=== PATIENT | female | born 1940 | race Caucasian/White ===

== ENCOUNTER 2017-05-24 18:28 | Emergency (ER) | payer MEDICARE ==
[~2017-05-24] VITALS: Ht 165.1 cm; Wt 76.7 kg
[~2017-05-24 18:28] MED LIST: ACETAMINOPHEN-1 EAC1 PO; AMBIEN 10 MG TA10 MG; ANASTROZOLE1 MG PO; ASPIR 8181 MG PO; BENADRYL25 MG PO; BENTYL 10 MG CA10 M1 PO; BENTYL 10 MG CA10 MG PO; CARISOPRODOL 3350 MG PO; CELEXA; CHLORDIAZEPOXI1 EAC1 PO; COQ-10100 MG PO; CRESTOR5 MG; CYTOMEL 5MCG TA5 MC1 PO; ESTRACE0.5 MG; K-DUR10 ME1; MALTREXONE PO; MEDROLDOSEPACK PO; PREDNISONE 20 M20 MG PO; PREVACID; TESSALON PERLE100 MG PO; VERAPAMIL ER180 MG PO; ZOCOR 20 MG TAB20 M1
[2017-05-24] MEDS ORDERED: VALIUM2 MG PO (19:23)
[2017-05-24 19:40] VITALS: BP 158/78
[2017-06-13] MEDS ORDERED: LIOTHYRONINE PO (14:41)
== END 2017-05-24 19:46 | disposition home or self-care (01) ==
LOC: M.ERS 18:28
DX: R42 Dizziness and giddiness (principal); I10 Essential (primary) hypertension; E78.5 Hyperlipidemia, unspecified; Z98.890 Other specified postprocedural states; Z85.3 Personal history of malignant neoplasm of breast; Z88.2 Allergy status to sulfonamides; Z88.1 Allergy status to other antibiotic agents; Z88.5 Allergy status to narcotic agent; Z88.8 Allergy status to other drugs, medicaments and biological substances

== ENCOUNTER 2017-06-21 06:20 | Inpatient (IN) | payer MEDICARE ==
[~2017-06-21] VITALS: Ht 165.1 cm; Wt 76.7 kg
[~2017-06-21 06:20] MED LIST changes: +LIOTHYRONINE PO; +VALIUM2 MG PO
[2017-06-21 06:40] LABS: HEMATOCRIT 43.5 % (37.0-47.0); HEMOGLOBIN 14.8 gm/dL (12.0-15.0); MCH 30.2 pg (26.0-34.0); MCHC 34.2 g/dL (28.0-37.0); MCV 88.4 fL (80.0-100.0); MPV 6.6 fl. (7.2-11.1); RBC 4.92 mil/uL (4.20-5.00); RDW-CV 14.2 % (10.5-14.5); WBC 4.7 thou/uL (4.0-11.0)
[2017-06-21 06:48] LABS: CALCIUM 9.3 mg/dL (8.5-10.1); POTASSIUM 3.7 mmol/L (3.5-5.1)
[2017-06-21 06:56] VITALS: BP 113/76
[2017-06-21 07:01] LABS: ALBUMIN 3.7 g/dL (3.4-5.0); TOTAL BILIRUBIN 0.8 mg/dL (<0.1-1.0); TOTAL PROTEIN 7.5 g/dL (6.4-8.2)
[2017-06-21 13:07] VITALS: BP 140/46
--- NOTE | 2017-06-21 15:59 | EKG ---
[place] [address] ELECTROCARDIOGRAM REPORT Name: CARLGALILEO Room: [address] ADM IN M.R.#: [id number] Admission: 06/21/17 Attend Phys: Chas Miller Discharge: Date of : 36 Report #: [id number] THIS REPORT FOR: //name// [facility] Test Date: 2017-06-21 Test Time: 07:29:38 Pat Name: GALILEO HENRY Department: Room: 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: : 1940 Requested By: Chas Miller Order Number: [id number] Susie FELICIANO: Scottie Murray Measurements Intervals [place] Rate: 69 P: 97 CT: 210 QRS: 41 QRSD: 86 T: 12 QT: 402 QTc: 431 Interpretive Statements Sinus rhythm Compared to ECG 04/23/2013 12:14:30 ST (T wave) deviation no longer present Prolonged QT interval no longer present Electronically Signed On 06-21-2017 15:59:18 CDT by Scottie Murray [email or web address] <ELECTRONICALLY SIGNED> By: Scottie Murray MD, [facility] 06/21/17 1559 0729 0729 Scottie Murray MD, [facility] /EPI
[2017-06-21 16:03] VITALS: BP 152/69
--- NOTE | 2017-06-21 19:52 | NUR ---
PATIENT REMAINED ALERT AND ORIENTED X'S 4. VITAL SIGNS AND SPO2 STABLE. IV CLEAN, FLUIDS INFUSING. PAIN WELL CONTROLLED WITH PAIN MEDS. TOLERATED DIET, DID HAVE SOME BOUTS OF NAUSEA, GAVE, ZOFRAN, NAUSEA SUBSIDED. LAP SITES ON ABDOMEN CLEAN, INTACT, SLIGHT DRAINAGE. PROCTOR IN PLACE. SCD'S, YELLOW SOCKS, ICE PACK IN PLACE. COMPLETED HOURLY ROUNDING. CALL LIGHT WITHIN REACH. WILL CONTINUE TO MONITOR.
[2017-06-21 20:00] VITALS: BP 141/67
[2017-06-22 00:25] VITALS: BP 140/65
[2017-06-22 03:39] VITALS: BP 131/59
[2017-06-22 04:20] LABS: HEMATOCRIT 37.5 % (37.0-47.0); MCH 29.8 pg (26.0-34.0); MCHC 33.5 g/dL (28.0-37.0); MCV 88.8 fL (80.0-100.0); RBC 4.23 mil/uL (4.20-5.00); RDW-CV 13.7 % (10.5-14.5); WBC 10.2 thou/uL (4.0-11.0)
[2017-06-22 04:41] LABS: CALCIUM 8.6 mg/dL (8.5-10.1); CREATININE 0.7 mg/dL (0.6-1.3); POTASSIUM 4.5 mmol/L (3.5-5.1)
[2017-06-22 04:57] LABS: HEMOGLOBIN 12.6 gm/dL (12.0-15.0)
--- NOTE | 2017-06-22 05:41 | NUR ---
ASSUMED PATIENT CARE AT 1999. PATIENT ALERT AND ORIENTED TIMES FOUR WITH FAMILY AT BEDSIDE. MINOR COMLAINT OF HEARTBURN. PAIN AND NAUSEA MEDICATION GIVEN. DRESSING SITES REINFORCED DUR DAY SIFT YESTERDAY. EXCITED TO BE ABLE TO GET CLEAR LIQUIDS TODAY. UPPER TIER AND HOURLY ROUNDING COMLETED DOCUMENTED.
[2017-06-22 08:28] VITALS: BP 128/64
--- NOTE | 2017-06-22 12:29 | NUR ---
ASSUMED CARE OF PATIENT AT 1100. REPORT RECEIVED FROM Irena ARROYO RN. AGREE WITH PREVIOUS ASSESSMENT. IV FLUIDS RESUMED AFTER WORKING WITH PHYSICAL THERAPY. UP IN CHAIR. LAP SITES INTACT. DENIES ANY NEEDS. WILL CONTINUE WITH PLAN OF CARE.
--- NOTE | 2017-06-22 15:00 | NUR ---
PT.ALERT AND ORIENTED. FAMILY AT BEDSIDE AND ARE SUPPORTIVE. PT.'S WAS DISCHARGED ON 06/20 FROM HOSPITAL AND WENT TO [facility] FOR SKILLED STAY. PT.PLANS TO GO HOME AT DISCHARGE. SHE WILL HAVE HOME HEALTH. [facility] AT HOME CALLED AND SAID WANTS PT.TO HAVE HH AT DISCHARGE. PT.IS NORMALLY INDEPENDENT AT HOME. CM WILL FOLLOW
[2017-06-22 16:00] VITALS: BP 170/62
[2017-06-22 16:59] VITALS: BP 128/64
--- NOTE | 2017-06-22 18:53 | NUR ---
PATIENT HAS BEEN A/O X 4 THIS SHIFT. PAIN CONTROLLED WITH SCHEDULED TORADOL. UP WITH ASSIST TO BATHROOM. UP IN CHAIR THIS SHIFT. PROCTOR REMOVED AND PATIENT ABLE TO URINATE WITHOUT DIFFICULTY. TOLERATING CLEAR LIQUIDS. LAP SITES TO ABDOMEN INTACT. HAS HAD MULTIPLE FAMILY MEMBERS VISITING THIS SHIFT. HOURLY ROUNDING COMPLETED. CALL LIGHT WITHIN REACH. WILL CONTINUE WITH PLAN OF CARE.
[2017-06-22 20:45] VITALS: BP 114/53
[2017-06-23 00:44] VITALS: BP 135/66
[2017-06-23 04:28] VITALS: BP 127/73
--- NOTE | 2017-06-23 06:46 | NUR ---
PATIENT HAS SLEPT OFF AND ON BUT RESTLESS AT TIMES DURING THE NIGHT. VSS ON RA. PATIENT IS UP AD-GIFTY AND STEADY. PATIENT REMAINS ON CLEAR LIQUID DIET AT THIS TIME. NO C/O PAIN. NO NAUSEA OR VOMITING. IV IN LEFT WRIST-NS W/20K@ 75ML/HR. PATIENT INSTRUCTED TO USE CALL LIGHT WHEN NEEDING ASSISTANCE. HOURLY ROUNDS MADE. WILL CONTINUE WITH PLAN OF CARE AND NURSING TO MONITOR.
--- NOTE | 2017-06-23 07:01 | PROC ---
[facility] [address] [place] [address] PROCEDURE REPORT Name: HENRYGALILEO F Room: [address] IN M.R.#: [id number] Admission: 06/21/17 Attend Phys: Chas Miller Discharge: Date of : 36 Report #: [id number] THIS REPORT FOR: //name// CC: Juan Coelloerra Chas Miller DATE OF SERVICE: 06/21/2017 PREOPERATIVE DIAGNOSIS: Right colon polyp. POSTOPERATIVE DIAGNOSIS: Right colon polyp. PROCEDURE: Laparoscopic right hemicolectomy with ileocolostomy. SURGEON: Chas Miller MD ANESTHESIA: General. ESTIMATED BLOOD LOSS: 20 mL SPECIMEN: Right colon. DESCRIPTION OF PROCEDURE: After informed consent was obtained, the patient was brought to the operating room and placed supine. SCDs were placed and working, preoperative antibiotics were administered according to SCIP guidelines, general anesthesia was induced. Mueller catheter was placed. The abdomen was prepped and draped in the usual sterile fashion. A 10 mm incision was made above the umbilicus. Fascia was incised. Trocar was placed. Pneumoperitoneum established. An epigastric 5 mm port was placed and a left lower quadrant 5 mm port was placed. The patient was then placed in the right side down position. The colon was then mobilized medially. The white line of Toldt was incised using the LigaSure device. This allowed for good medial mobilization of the right colon. The laparoscope was then removed. I extended the umbilical incision superiorly and inferiorly approximately 3 cm. The fascia was incised. The terminal ileum and the right colon were fairly mobile and I brought them out through this incision. The colon was then transected at approximately the hepatic flexure. A LigaSure dissection was used to ligate the mesentery. The ileocolic vessels were ligated with a 2-0 silk stick tie. The ileum was then transected approximately 7 cm from the cecum. The specimen was then removed. A lmah-il-jqbr functional end-to-end anastomosis was performed. This was done with a HUGO-80 stapler. The bowel was brought into apposition in [id number]-hv-wzzl and stapled. There was good application [place] [address] PROCEDURE REPORT Name: GALILEO HENRY Room: [address] IN [facility].#: [id number] Admission: 06/21/17 Attend Phys: Chas Miller Discharge: Date of : 36 Report #: [id number] enterocolostomy was then stapled with a HUGO-80 stapler as well. The mesenteric defect was closed using interrupted 3-0 silk sutures. The anastomosis was placed back into the abdomen. The fascia was reapproximated with 0 PDS in running fashion. Skin was closed with 4-0 Monocryl. Incision was sealed with Dermabond. COMPLICATIONS: None. DISPOSITION: The patient was taken to recovery in satisfactory condition. <ELECTRONICALLY SIGNED> By: Chas Miller MD 06/23/17 0701 1024 [id number] Miller MD /nt
[2017-06-23 08:00] VITALS: BP 151/70
[2017-06-23 16:00] VITALS: BP 140/69
--- NOTE | 2017-06-23 17:35 | NUR ---
ALERT AND ORIENTED X4. UP AD GIFTY IN ROOM. IV IS PATENT AND INFUSING. DENIES PAIN AND NAUSEA. AMBULATED IN HALLWAYS THIS SHIFT. TOLERATING FULL LIQUID DIET. VSS ON ROOM AIR. HOURLY ROUNDS HAVE BEEN MAINTAINED THROUGHOUT SHIFT. CALL LIGHT IS WITHIN REACH. NURSING WILL CONTINUE TO MONITOR.
[2017-06-23 20:15] VITALS: BP 140/72
[2017-06-24] VITALS: BP 128/81
[2017-06-24 04:00] VITALS: BP 111/63
--- NOTE | 2017-06-24 04:40 | NUR ---
PATIENT REMAINS ALERT AND ORIENTED X4 THROUGHOUT SHIFT. DENIED PAIN OR NAUSEA. VITAL SIGNS STABLE ON ROOM AIR. TOLERATING FULL LIQUID DIET. REMAINS UP AD- GIFTY AND STEADY. PATIENT HAS BEEN RESTING COMFORTABLY DURING THE NIGHT. PATIENT INSTRUCTED TO USE CALL LIGHT IF NEEDING ASSISTANCE. NURSING WILL CONTINUE TO MONITOR.
[2017-06-24 07:30] VITALS: BP 115/72
[2017-06-24 16:00] VITALS: BP 111/65
--- NOTE | 2017-06-24 17:42 | NUR ---
ALERT AND ORIENTED X4. UP AD GIFTY DURING AMBULATION. NO IV. DENIES PAIN AND NAUSEA. TOLERATING REGULAR DIET. AMBULATING IN HALLWAYS. DRESSING ON ABDOMEN WITH MODERATE AMOUNT OF DRAINAGE. VSS ON ROOM AIR. HOURLY ROUNDS HAVE BEEN MAINTAINED THROUGHOUT SHIFT. CALL LIGHT IS WITHIN REACH. NURSING WILL CONTINUE TO MONITOR.
[2017-06-24 20:15] VITALS: BP 136/69
[2017-06-25 00:49] VITALS: BP 121/59
[2017-06-25 04:34] VITALS: BP 138/73
--- NOTE | 2017-06-25 05:08 | NUR ---
PATIENT ALERT AND ORIENTED X4 THROUGHOUT SHIFT. VITAL SIGNS STABLE ON ROOM AIR. DRESSING ON ABDOMEN WITH MODERATE AMOUNT OF DRAINAGE. TRANSFERRING AD GIFTY. PATIENT HAS DENIED PAIN OR NAUSEA. CURRENTLY DOES NOT HAVE AN IV IN PLACE. PATIENT STATES "I WOULD LIKE TO GO HOME TODAY." HOURLY ROUNDING HAS BEEN COMPLETE. CALL LIGHT WITHIN REACH. NURSING WILL CONTINUE TO MONITOR.
[2017-06-25 08:10] VITALS: BP 125/65
[2017-06-25 12:03] VITALS: BP 128/64
[2017-06-25] MEDS ORDERED: HYDROCODONE-AP1 EAC6 PO (12:21)
--- NOTE | 2017-06-25 12:22 | NUR ---
PATIENT LEFT UNIT BY WHEELCHAIR WITH NURSING STAFF. IV DC'D. EDUCATED PATIENT AND FAMILY ON NEW MED SCRIPTS AND DISCHARGE INSTRUCTIONS. PATIENT AND FAMILY VERBALIZED UNDERSTANDING. ALL BELONGINGS LEFT WITH PATIENT
[2017-06-25 12:23] VITALS: BP 128/64
--- NOTE | 2017-06-25 13:27 | S ---
[place] [address] SURGICAL PATH RPT PROCEDURE Name: GALILEO HENRY Room: [address] IN .R.#: [id number] Admission: 06/21/17 Date of : 36 Discharge: 06/25/17 Report #: [id number] Path Case #: [id number] PATHOLOGY REPORT COLLECTION DATE: 06/21/2017 RECEIVED DATE: 06/21/2017 SUBMITTING PHYS: Dr. Chas Miller OTHER PHYS: Dr. Juan Hand SPECIMEN(S) RECEIVED: A.Right colon, neoplasm * * * * * * * * * * * * FINAL DIAGNOSIS: Right colon: - Tubular adenoma without high grade dysplasia, forming a polypoid mass measuring 2.0 x 1.5 x 0.9 cm in cecum, with all surgical margins widely free of involvement. - Benign terminal ileum and appendix and eighteen benign pericolic lymph nodes (0/18). See comment. COMMENT: A grossly suspected lymph node submitted in A10 is noted to represent nodular fat necrosis. (FRANCK:db; 06/25/2017) PATHOLOGIST: Real Waldron M.D. REPORT ELECTRONICALLY SIGNED BY: Real Waldron M.D. DATE/TIME: 06/25/2017 13:26 * * * * * * * * * * * * GROSS PATHOLOGY: The specimen is received in formalin, labeled "Galileo Henry, right colon," and consists of a previously-opened, right hemicolectomy specimen consisting of small bowel measuring 1.7 cm in length and 2.0 cm in diameter, ascending colon measuring 9.3 cm in length and 2.5 cm in diameter, appendix measuring 5.3 cm in length and 0.4 cm in diameter, and attached pericolic fat measuring 8.0 cm in greatest dimension. Both margins are stapled closed. The serosal surface is pink-li with no gross evidence of previous tattooing. The mucosal surface displays a polypoid and multilobulated mass (2.0 x 1.5 x 0.9 cm) in the cecum which measures 2.5 cm from the proximal resection margin, 5.5 cm from the distal resection margin, and 0.8 cm from the ileocecal valve. Sectioning reveals the mass to be contained within the mucosa. The remaining mucosa is pink-li with its normal folds and no additional masses or lesions. The appendix serosal surface is pink-li and smooth and sectioning reveals [place] [address] SURGICAL PATH RPT PROCEDURE Name: GALILEO HENRY Room: [address]#: [id number] Admission: 06/21/17 Date of : 36 Discharge: 06/25/17 Report #: [id number] Path Case #: [id number] Sectioning through the pericolic fat reveals multiple lymph node candidates ranging from 0.1 cm to 1.1 cm. Qu[employer] Sorter sections are submitted as follows: A1: Proximal resection margin A2: Distal resection margin A3-A5: Entire mass A6: Uninvolved large intestine A7: Small intestine A8: Appendix A9. Largest lymph node, trisected A10: Two lymph node bisected, one differentially-inked A11: Two lymph nodes bisected, one differentially-inked A12: Two lymph nodes bisected, one differentially-inked A13-A14: Additional lymph node candidates, intact (SDY; 06/22/2017) CLINICAL HISTORY: Benign neoplasm of ascending colon INITIAL CPT CODE(S): A; 54279 Professional services performed [place] [address] Technical services performed by [employer] at [address] [place] [address], [address], [place] [address]. [facility] [place] [address] PHONE: [phone] DIRECTOR: Kang Ferrer M.D. * * * END OF REPORT * * *
--- NOTE | 2017-06-25 13:50 | NUR ---
PT.DISCHARGED EARLIER. HAD ORDERS FOR HOME HEALTH. SHE HAD CHOSEN [facility] HOME FOR HH. NOTIFIED DOYLE/[facility] AND FAXED FACE SHEET,ORDER,DISCHARGE SUMMARY AND MED LIST TO HER AT [phone].
== END 2017-06-25 12:18 | disposition home or self-care (01) | DRG 331 ==
LOC: M.TBA 06:20 → M.PRE 10:23 → M.ORTHSURG 11:50
PROVIDERS: Family Medicine; ADMIT Surgery
PROC: 0DTF4ZZ Resection of Right Large Intestine, Percutaneous Endoscopic Approach (ICD-10-PCS; principal; 2017-06-21)
DX: D12.6 Benign neoplasm of colon, unspecified (principal); Z88.1 Allergy status to other antibiotic agents; Z88.2 Allergy status to sulfonamides; Z88.8 Allergy status to other drugs, medicaments and biological substances

== ENCOUNTER 2017-09-26 04:30 | Inpatient (IN) | payer MEDICARE ==
[~2017-09-26] VITALS: Ht 165.1 cm; Wt 75.4 kg
[~2017-09-26 04:30] MED LIST changes: +HYDROCODONE-AP1 EAC6 PO
[2017-09-26 04:34] VITALS: BP 150/82
[2017-09-26] MEDS ORDERED: COLESTIPOL HCL1 G1 PO (04:40)
[2017-09-26] MEDS ORDERED: CRANBERRY500 MG PO (04:42)
[2017-09-26] MEDS ORDERED: K2 PLUS D3 TAB1 EACH PO (04:44)
[2017-09-26 05:17] LABS: ABSOLUTE BASOPHILS 0.1 thou/uL (0.0-0.2); ABSOLUTE EOSINOPHILS 0.1 thou/uL (0.0-0.7); ABSOLUTE LYMPHOCYTES 1.9 thou/uL (0.8-5.3); ABSOLUTE MONOCYTES 0.4 thou/uL (0.0-1.2); ABSOLUTE NEUTROPHILS 2.6 thou/uL (1.6-8.1); BASOPHILS 1.2 %; EOSINOPHILS 2.9 %; HEMATOCRIT 42.2 % (37.0-47.0); HEMOGLOBIN 13.9 gm/dL (12.0-15.0); LYMPHOCYTES 36.9 %; MCH 28.5 pg (26.0-34.0); MCV 86.3 fL (80.0-100.0); MONOCYTES 8.4 %; MPV 6.5 fl. (7.2-11.1); NUCLEATED RBCS 0 /100WBC; PLATELET COUNT* 268 thou/uL (150-400); POLYS 50.6 %; RBC 4.89 mil/uL (4.20-5.00); RDW-CV 14.5 % (10.5-14.5); WBC 5.1 thou/uL (4.0-11.0)
[2017-09-26 05:31] LABS: ANION GAP 8 mmol/L (7-16); BUN 13 mg/dL (7-18); CHLORIDE 106 mmol/L (98-107); CO2 25 mmol/L (21-32); CREATININE 0.8 mg/dL (0.6-1.3); GLUCOSE 101 mg/dL (70-99); POTASSIUM 4.1 mmol/L (3.5-5.1); SODIUM 139 mmol/L (136-145)
[2017-09-26 05:32] LABS: URINE BILIRUBIN NEGATIVE (Negative); URINE BLOOD TRACE (Negative); URINE CLARITY CLEAR; URINE COLOR YELLOW; URINE GLUCOSE-RANDOM NEGATIVE (Negative); URINE KETONES NEGATIVE (Negative); URINE LEUKOCYTES-REFLEX 1+ (Negative); URINE NITRITE-REFLEX NEGATIVE (Negative); URINE PROTEIN NEGATIVE (Negative); URINE UROBILINOGEN 0.2 E.U./dl (0.2-1.0)
[2017-09-26 05:43] LABS: ALBUMIN 3.2 g/dL (3.4-5.0); ALKALINE PHOSPHATASE 99 U/L (46-116); NT-PRO BRAIN NAT PEPTIDE 106 pg/mL (<300); SGOT 18 U/L (15-37); SGPT 21 U/L (30-65); TOTAL BILIRUBIN 0.3 mg/dL (<0.1-1.0); TOTAL PROTEIN 7.1 g/dL (6.4-8.2); TROPONIN-I LEVEL <0.06 ng/mL (<0.06)
[2017-09-26 06:09] LABS: BACTERIA-REFLEX 1-9 Few /HPF (None Seen); CASTS None Seen /LPF (None Seen); CRYSTALS None Seen /LPF (None Seen); MUCUS 0-3 Light strn/LPF (None Seen); SQUAMOUS 4-10 Moderate /LPF (0-3); URINE RBC 0-2 Rare /HPF (0-2); URINE WBC-REFLEX 6-15 Few /HPF (0-5)
[2017-09-26 08:02] VITALS: BP 152/77
[2017-09-26 12:00] VITALS: BP 123/66
--- NOTE | 2017-09-26 13:34 | NUR ---
PT ADMITTED AROUND 0900 PT IS ALERT AND ORIENTED X 4 PT DENIES PAIN OR SOA ON RA, PT IS UP AD GIFTY PT IS NOT FALL RISK, PT HAS OWN MEDICATION WHICH WAS SENT TO PHARMACY OBTAINED ORDER FOR USE AND ABLE TO GIVE TO PT, PT IS SR ON THE MONITOR, CARDIOLOGY SAW PT CLEARED PT FOR DISCHARGE ONCE PT AMBULATED HALLWAY WHICH PT DID NO C/O DIZZINESS LIGHTHEADNESS HEART RATE DID NOT INCREASE OR DECREASE, PAGED PHYSICIAN FOR DISCAHRGE ORDERS, WILL CONTINUE TO MONITOR
[2017-09-26 14:44] VITALS: BP 123/66
--- NOTE | 2017-09-27 10:23 | EKG ---
[place] [address] ELECTROCARDIOGRAM REPORT Name: HENRYGALILEO Room: [address]#: [id number] Admission: 09/26/17 Attend Phys: Omar Gupta MD Discharge: 09/26/17 Date of : 36 Report #: [id number] THIS REPORT FOR: //name// [facility] ED Test Date: 2017-09-26 Test Time: 04:37:41 Pat Name: GALILEO HENRY Department: Room: Gender: Floor Nurse: ROSALINA Samuels : 1940 Requested By: Karime Feliz Order Number: [id number] MD: Kendrick Adamson Measurements Intervals [place] Rate: 77 P: 65 [place]: 202 QRS: 33 QRSD: 89 T: 35 QT: 422 QTc: 478 Interpretive Statements Sinus rhythm Atrial premature complex Borderline T wave abnormalities Borderline prolonged QT interval Compared to ECG 06/21/2017 07:29:38 Atrial premature complex(es) now present T-wave abnormality now present Electronically Signed On 09-27-2017 10:23:40 CDT by Kendrick Adamson [email or web address] <ELECTRONICALLY SIGNED> By: Kendrick Adamson MD, FAC 09/27/17 1023 0437 0437 Kendrick Adamson MD, FAC /EPI
--- NOTE | 2017-10-04 13:33 | CON ---
[address] [address] CONSULTATION Name: GALILEO HENRY Room: [address] IN M.R.#: [id number] Admission: 09/26/17 Attend Phys: Omar Gupta MD Discharge: 09/26/17 Date of : 36 Report #: [id number] THIS REPORT FOR: //name// CC: Juan Gupta DATE OF SERVICE: 09/26/2017 PRIMARY CARE PHYSICIAN: Dr. Juan Hand, [facility]. CHIEF COMPLAINT: Left arm pain. HISTORY OF PRESENT ILLNESS: The patient is a 77-year-old female who presented to the Emergency Room with left arm pain occurring at rest. It was nonradiating, it was not associated with physical activity, it was not associated with diaphoresis, but she did get nausea x 1 without vomiting. Her symptoms resolved immediately in the Emergency Room and she was admitted for observation with cardiac markers and telemetry monitoring, which were unremarkable. She has remained asymptomatic through the remainder of her stay through this morning. She denies exertional shortness of breath, chest pain or pressure. Most of her current medical problems involved managing her hypothyroidism. She has no associated edema, orthopnea or PND. Her energy level has been fairly stable, although generally reduced over the last several months. She has numerous cardiovascular risk factors. PAST MEDICAL HISTORY: Significant for hypertension, hyperlipidemia. She has been on therapy for these problems for about 10 years. She did follow with her flat drier, Dr. Marley who recently retired and has had stress testing within the last 5 years. She is scheduled to see a flat drier at [facility] because of an abnormal "blip" on an ECG performed at a health screen, although she has maintained a sinus rhythm here in the hospital. She has a history of left-sided breast cancer. PAST SURGICAL HISTORY: Hemorrhoidectomy. HOME MEDICATIONS: Include colestipol, verapamil 180 mg daily, baby aspirin and liothyronine 50 mcg daily. ALLERGIES: SHE HAS ALLERGIES TO MYRBETRIQ, SULFA, DECONAMINE, IODINE, SUDAFED, THIORIDAZINE, MELLARIL. REVIEW OF SYSTEMS: GENERAL: No fevers or chills. PULMONARY: No wheezing or cough. No [place] [address] CONSULTATION Name: GALILEO HENRY Room: [address]#: [id number] Admission: 09/26/17 Attend Phys: Omar Gupta MD Discharge: 09/26/17 Date of : 36 Report #: [id number] CARDIOVASCULAR: No chest pain. No palpitation, no orthopnea, no PND. GASTROINTESTINAL: Positive nausea, no vomiting, no hematemesis or melena. NEUROLOGIC: Denies any headaches, blurred vision or seizure. SKIN: No rashes. PHYSICAL EXAMINATION: VITAL SIGNS: Blood pressure on presentation was 150/80 and it has been trending lower in the hospital in the 130s systolic. Her pulse is in the 70s and sinus rhythm. GENERAL: Pleasant elderly female. She is alert and oriented, in no apparent distress. NECK: Supple. No jugular venous distention. CARDIOVASCULAR: Regular. I cannot hear a murmur or S3. CHEST: Clear to auscultation. ABDOMEN: Soft, nontender. EXTREMITIES: No peripheral edema. SKIN: Warm and dry. LABORATORY DATA: Hemoglobin is 13.9, white blood cell count is 5.1. Sodium is 139, potassium is 4.1, chloride is 106, CO2 is 25, BUN is 13, creatinine is 0.8, glucose is 101. Troponin I is 0.06 x 3 sets. NT-proBNP is 106. ECG demonstrates a sinus rhythm with a Q-wave in lead III only and normal ST segments. It was present on her health screening study as well. IMPRESSION: 1. Left arm pain. Her symptoms are atypical for angina, but she does have cardiovascular risk factors. She has cardiovascular followup already scheduled. She seems lower risk at this point. I told her to return if her symptoms progress over this holiday weekend. Otherwise, keep her appointment with her heart doctor at [facility]. 2. Hypertension. This seems fairly stable on current medical therapy. I made no changes. 3. Hyperlipidemia. She will continue to follow up with her primary care doctor for this. 4. Left arm pain. This could be also related to a musculoskeletal process if her cardiac workup is negative. <ELECTRONICALLY SIGNED> By: Kendrick Adamson MD, FACC 10/04/17 1333 1300 1830Kendrick Adamson MD, FACC /nt
== END 2017-09-26 15:19 | disposition home or self-care (01) | DRG 313 ==
LOC: M.ERS 04:30 → M.TBA-ER 06:23 → M.2W 07:50
PROVIDERS: Emergency Medicine; ADMIT Internal Medicine
DX: R07.89 Other chest pain (principal); M79.602 Pain in left arm; I10 Essential (primary) hypertension; Z96.1 Presence of intraocular lens; K58.9 Irritable bowel syndrome, unspecified; E78.5 Hyperlipidemia, unspecified; F17.210 Nicotine dependence, cigarettes, uncomplicated; E03.9 Hypothyroidism, unspecified; Z85.3 Personal history of malignant neoplasm of breast; Z98.41 Cataract extraction status, right eye; Z98.42 Cataract extraction status, left eye; Z79.82 Long term (current) use of aspirin; Z88.2 Allergy status to sulfonamides; Z88.8 Allergy status to other drugs, medicaments and biological substances; Z88.1 Allergy status to other antibiotic agents; Z91.041 Radiographic dye allergy status

== ENCOUNTER 2017-10-13 11:10 | Emergency (ER) | payer MEDICARE ==
[~2017-10-13] VITALS: Ht 165.1 cm; Wt 83.0 kg
[~2017-10-13 11:10] MED LIST changes: +COLESTIPOL HCL1 G1 PO; +CRANBERRY500 MG PO; +K2 PLUS D3 TAB1 EACH PO
[2017-10-13] MEDS ORDERED: MEDROLDOSEPACK PO (13:20)
[2017-10-13 13:22] VITALS: BP 130/79
== END 2017-10-13 13:23 | disposition home or self-care (01) ==
LOC: M.ERS 11:10
DX: I80.8 Phlebitis and thrombophlebitis of other sites (principal); I10 Essential (primary) hypertension; E78.5 Hyperlipidemia, unspecified; Z85.3 Personal history of malignant neoplasm of breast; Z88.1 Allergy status to other antibiotic agents; Z88.2 Allergy status to sulfonamides; Z88.8 Allergy status to other drugs, medicaments and biological substances

== ENCOUNTER → 2018-01-01 | Outpatient (CLI) | payer MEDICARE | LOC: M.RAD 15:02 | DX: M85.89 Other specified disorders of bone density and structure, multiple sites (principal); I10 Essential (primary) hypertension; E78.5 Hyperlipidemia, unspecified; Z78.0 Asymptomatic menopausal state ==

== ENCOUNTER 2018-11-09 17:13 | Emergency (ER) | payer MEDICARE ==
[~2018-11-09] VITALS: Ht 162.6 cm; Wt 83.0 kg
[2018-11-09 17:41] LABS: ABSOLUTE EOSINOPHILS 0.1 thou/uL (0.0-0.7); ABSOLUTE LYMPHOCYTES 1.5 thou/uL (0.8-5.3); ABSOLUTE MONOCYTES 0.4 thou/uL (0.0-1.2); ABSOLUTE NEUTROPHILS 2.4 thou/uL (1.6-8.1); BASOPHILS 0.8 %; EOSINOPHILS 1.8 %; HEMATOCRIT 42.5 % (37.0-47.0); HEMOGLOBIN 14.6 gm/dL (12.0-15.0); LYMPHOCYTES 34.3 %; MCH 30.4 pg (26.0-34.0); MCHC 34.3 g/dL (28.0-37.0); MCV 88.7 fL (80.0-100.0); MPV 6.7 fl. (7.2-11.1); NUCLEATED RBCS 0 /100WBC; PLATELET COUNT* 258 thou/uL (150-400); POLYS 54.1 %; RBC 4.79 mil/uL (4.20-5.00); RDW-CV 13.4 % (10.5-14.5); WBC 4.5 thou/uL (4.0-11.0)
[2018-11-09] MEDS ORDERED: TOFRANIL10 MG PO (17:42)
[2018-11-09] MEDS ORDERED: [UNRECOGNIZED DRUG - OTHER] (17:43)
[2018-11-09] MEDS ORDERED: COLESTID1 GM PO (17:44)
[2018-11-09 17:49] LABS: ANION GAP 10 mmol/L (7-16); BUN 11 mg/dL (7-18); CALCIUM 8.9 mg/dL (8.5-10.1); CHLORIDE 101 mmol/L (98-107); CO2 25 mmol/L (21-32); CREATININE 0.9 mg/dL (0.6-1.3); GLUCOSE 107 mg/dL (70-99); POTASSIUM 3.4 mmol/L (3.5-5.1); SODIUM 136 mmol/L (136-145)
[2018-11-09 17:59] LABS: ALBUMIN 3.7 g/dL (3.4-5.0); ALKALINE PHOSPHATASE 97 U/L (46-116); LIPASE 85 U/L (73-393); NT-PRO BRAIN NAT PEPTIDE 144 pg/mL (<300); SGOT 17 U/L (15-37); SGPT 22 U/L (30-65); TOTAL BILIRUBIN 0.4 mg/dL (<0.1-1.0); TOTAL PROTEIN 7.4 g/dL (6.4-8.2); TROPONIN-I LEVEL <0.06 ng/mL (<0.06)
[2018-11-09 18:01] LABS: PROTIME 10.6 Seconds (9.20-11.50)
[2018-11-09 18:49] VITALS: BP 135/73
--- NOTE | 2018-11-11 13:10 | EKG ---
[place] [address] ELECTROCARDIOGRAM REPORT Name: LEVI HENRYINE Nick Room: [facility]#: [id number] Admission: 11/09/18 Attend Phys: Discharge: 11/09/18 Date of : 36 Report #: [id number] THIS REPORT FOR: //name// [facility] ED Test Date: 2018-11-09 Test Time: 17:17:38 Pat Name: GALILEO HENRY Department: Room: Gender: F Director Of Event Marketing: : 1940 Requested By: Heri Thayer Order Number: [id number] MD: Esteban Sung Measurements Intervals [place] Rate: 80 P: 79 DC: 181 QRS: 30 QRSD: 85 T: 24 QT: 394 QTc: 455 Interpretive Statements Sinus rhythm Atrial premature complex Sinus pause Compared to ECG 09/26/2017 04:37:41 Sinus pause or arrest now present T-wave abnormality no longer present Electronically Signed On 11-11-2018 13:10:41 CDT by Esteban Sung [email or web address] <ELECTRONICALLY SIGNED> By: Esteban Sung MD, [facility] 11/11/18 1310 16 16 Esteban Sung MD, FAC /EPI
== END 2018-11-09 18:50 | disposition home or self-care (01) ==
LOC: M.ERS 17:13
PROVIDERS: Emergency Medicine
DX: R07.89 Other chest pain (principal); I10 Essential (primary) hypertension; E78.5 Hyperlipidemia, unspecified; K58.9 Irritable bowel syndrome, unspecified; E06.3 Autoimmune thyroiditis; Z98.41 Cataract extraction status, right eye; Z98.42 Cataract extraction status, left eye; Z91.041 Radiographic dye allergy status; Z88.2 Allergy status to sulfonamides; Z88.1 Allergy status to other antibiotic agents; Z91.013 Allergy to seafood; Z98.890 Other specified postprocedural states; Z85.3 Personal history of malignant neoplasm of breast; Z88.8 Allergy status to other drugs, medicaments and biological substances; Z88.6 Allergy status to analgesic agent; Z91.018 Allergy to other foods